=== PATIENT | female | born 1955 | race Two or more races ===

== ENCOUNTER → 2018-05-10 06:00 | Outpatient (CLI) | payer OTHER ==
[~2018-05-10] VITALS: Ht 170.2 cm; Wt 108.0 kg
[~2018-05-10 06:00] MED LIST: AVAPRO75 MG PO; COREG CR10 MG PO; HUMALOG100 UNIT/1; HUMULIN N100 UNIT/2; TRENTAL PO
== END | disposition home or self-care (01) ==
LOC: EKG 06:00 → RECOVERY 05-13 10:00 → EDSTATUS 05-13 10:00
DX: R93.89 Abnormal findings on diagnostic imaging of other specified body structures (principal); Z01.810 Encounter for preprocedural cardiovascular examination